=== PATIENT | female | born 1990 | race Caucasian/White ===

== ENCOUNTER 2019-06-12 15:30 | Emergency (ER) | payer OTHER ==
[2019-06-12] MEDS ORDERED: Orphenadrine 100 MG Tab.ER PO ONE (16:04)
[2019-06-12] MEDS ORDERED: Ketorolac 60 MG/2 ML SDV IM ONE (16:04)
--- NOTE | 2019-06-12 16:04 | EDM.PDOC ---
ED HPI GENERAL MEDICAL PROBLEM - General Chief Complaint: General Stated Complaint: JAW PAIN/SHOULDER PAIN/LEG PAIN Time Seen by Provider: 06/12/19 15:53 Source of Information: Reports: Patient, RN Notes Reviewed History Limitations: Reports: No Limitations - History of Present Illness INITIAL COMMENTS - FREE TEXT/NARRATIVE: Patient is a 29-year-old female who presents to the ED for the evaluation of muscle stiffness. Patient states she woke up at around 1:30 this morning, and she had a little bit of heartburn, and some midsternal chest pain she elevated her pillows at this time and seem to get better so she went to sleep., She states she woke up a little bit later in the morning and was having kind of all over body pain, joint pain in her wrist/hips/knees, and felt as if her palms are swollen. She states that she took about 50 mg of Benadryl for this, and a little bit of Aleve to see if this did not help. She states that the swelling did go down with the Benadryl. But the muscle stiffness is just still there. She denies any other sick-like symptoms, fever/chills, nausea/vomiting/ diarrhea. She does note a history of Crohn's disease, and is on Remicade. Patient denies any other allergies to foods or otherwise. She states she had Indian food last night, and did not eat anything that she wouldn't normally eat. Treatments [employer]: Reports: Other (see below) Generalized Pain Score (Numeric/FACES): 8 - Related Data Allergies Allergy/AdvReac Type Severity Reaction Status Date / Time No Known Allergies Allergy Verified 06/12/19 15:43 Home Meds: Home Meds InFLIXimab [Remicade] 100 mg IV ASDIRECTED 06/12/19 [History] Orphenadrine [Norflex] 100 mg PO BID PRN #20 tab 06/12/19 [Rx] predniSONE 20 mg PO ASDIRECTED #15 tab 06/12/19 [Rx] Past Medical History Gastrointestinal History: Reports: Other (See Below) Other Gastrointestinal History: crohn's disease [employer]OV[employer]TA[employer] INST[employer]ER History: Reports: - Infectious Disease History Infectious Disease History: Reports: Chicken Pox - Past Surgical History Musculoskeletal Surgical History: Reports: Other (See Below) Other Musculoskeletal Surgeries/Procedures:: R meniscus repair Social & Family History - Family History Family Medical History: Noncontributory - Tobacco Use Smoking Status *Q: Former Smoker Used Tobacco, but Quit: Yes Month/Year Tobacco Last Used: 2012 - Caffeine Use Caffeine Use: Reports: Coffee, Tea - Recreational Drug Use Recreational Drug Use: No ED ROS GENERAL - Review of Systems Review Of Systems: See Below Constitutional: Denies: Fever, Chills Respiratory: Denies: Shortness of Breath Cardiovascular: Denies: Chest Pain GI/Abdominal: Denies: Abdominal Pain, Constipation, Diarrhea, Nausea, Vomiting Musculoskeletal: Reports: Joint Pain (multiple, generalized), Muscle Stiffness ( generalized) Neurological: Denies: Numbness, Tingling ED EXAM, GENERAL - Physical Exam Exam: See Below Exam Limited By: No Limitations General Appearance: Alert, WD/WN, No Apparent Distress Eye Exam: Bilateral Eye: EOMI, Normal Inspection, PERRL Ears: Normal External Exam Nose: Normal Inspection Throat/Mouth: Normal Inspection, Normal Lips, Normal Teeth, Normal Gums, Normal Oropharynx, Normal Voice, No Airway Compromise Head: Atraumatic, Normocephalic Neck: Normal Inspection, Supple, Non-Tender, Full Range of Motion Respiratory/Chest: No Respiratory Distress, Lungs Clear, Normal Breath Sounds, No Accessory Muscle Use, Chest Non-Tender Cardiovascular: Normal Peripheral Pulses, Regular Rate, Rhythm, No Murmur Peripheral Pulses: 3+: Radial (L), Radial (R) GI/Abdominal: Normal Bowel Sounds, Soft, Non-Tender, No Distention, No Mass Back Exam: Normal Inspection, Full Range of Motion Extremities: Normal Inspection, Normal Range of Motion (pt does feel stiff, but is able to move joints in all ROM with little difficulty), Normal Capillary Refill Neurological: Alert, Oriented, Normal Cognition, No Motor/Sensory Deficits Psychiatric: Normal Affect, Normal Mood Skin Exam: Warm, Dry, Intact, Normal Color, No Rash Course - Vital Signs Last Recorded V/S: Last Vital Signs Temp 99.1 F 06/12/19 15:40 Pulse 106 H 06/12/19 15:40 Resp 19 06/12/19 15:40 BP 113/70 06/12/19 15:40 Pulse Ox 100 06/12/19 15:40 - Orders/Labs/Meds Meds: Medications Discontinued Medications Generic Name Dose Route Start Last Admin Trade Name Freq PRN Reason Stop Dose Admin Ketorolac Tromethamine 60 mg 06/12/19 16:04 06/12/19 16:22 Toradol IM 06/12/19 16:05 60 mg ONETIME ONE Administration Orphenadrine Citrate 100 mg 06/12/19 16:04 06/12/19 16:24 Norflex PO 06/12/19 16:05 100 mg ONETIME ONE Administration - Re-Assessments/Exams Free Text/Narrative Re-Assessment/Exam: 06/12/19 16:11 Patient presents to the ED for evaluation of generalized myalgias. As she has a history of Crohn's, I question whether or not she does not have a component of maybe RA with this. She is on Remicade already, story is suspicious as she has had multiple generalized large joint pain, pain in her wrist, hips, knees. 06/12/19 17:14 Patient states she received a little bit of relief from the Toradol and Norflex. I do believe this is some sort of inflammatory response, and will treat with prednisone on outpatient basis. Patient states that she did have a little bit relief from Benadryl so I did tell her she can take some of this on a daily basis as well over the next few days if it does not help relieve symptoms. Departure - Departure Time of Disposition: 17:16 Disposition: Home, Self-Care 01 Condition: Fair Clinical Impression: Myalgia, Stiff muscles - Discharge Information *PRESCRIPTION DRUG MONITORING PROGRAM REVIEWED*: No *COPY OF PRESCRIPTION DRUG MONITORING REPORT IN PATIENT TIFF: No Instructions: Musculoskeletal Pain Referrals: PCP,None [Primary Care Provider] - Forms: ED Department Discharge Additional Instructions: You were evaluated in the ER today regarding your generalized muscle stiffness. At this time the etiology of the muscle stiffness is unclear, as this was sudden onset, and the Benadryl seemed to help a little bit this morning, this may be more of an inflammatory response, you did get a little bit relief Toradol and Norflex. You will be given an outpatient course of prednisone, and Norflex to take over the next couple days to see if this does not help. You may try Benadryl 12.5 to 25 mg every 4-6 hours over the next few days to see if this also does not help some your symptoms. Please return to the ER at any time if your symptoms change or worsen. Sepsis Event Note - Evaluation Sepsis Screening Result: No Definite Risk - Focused Exam Vital Signs: Vital Signs Temp Pulse Resp BP Pulse Ox 06/12/19 15:40 99.1 F 106 H 19 113/70 100 Date Exam was Performed: 06/12/19 Time Exam was Performed: 17:14
== END 2019-06-12 17:35 | disposition home or self-care (01) ==
LOC: JD.ED 15:30
DX: M62.89 Other specified disorders of muscle (principal); Z87.891 Personal history of nicotine dependence
CPT/HCPCS: 96372; 99283; A9270; J1885